=== PATIENT | male | born 1970 | race Caucasian/White ===

== ENCOUNTER → 2020-07-26 | Outpatient (CLI) | payer SELFPAY | LOC: M LABSMTC 12:05 | PROVIDERS: ATTEND Pediatrics | DX: Z20.828 Contact with and (suspected) exposure to other viral communicable diseases (principal) ==

== ENCOUNTER → 2023-10-15 | Outpatient (REF) | payer OTHER ==
[~2023-10-15] MED LIST: BISO5TAB14; FEXO60TA99; LISI10TA22
== END ==
LOC: M LAB REF 12:42
PROVIDERS: ATTEND Nurse Practitioner Adult Health
DX: D72.829 Elevated white blood cell count, unspecified (principal)

== ENCOUNTER → 2023-10-18 | Outpatient (CLI) | payer OTHER | LOC: M WUC 15:29 | PROVIDERS: ATTEND Nurse Practitioner Adult Health | DX: D72.829 Elevated white blood cell count, unspecified (principal) ==

== ENCOUNTER → 2023-11-20 | Outpatient (CLI) | payer OTHER | LOC: M LAB 16:02 | PROVIDERS: ATTEND Nurse Practitioner Adult Health | DX: I10 Essential (primary) hypertension (principal); R61 Generalized hyperhidrosis; D72.829 Elevated white blood cell count, unspecified; R05.3 Chronic cough ==

== ENCOUNTER → 2023-11-22 | Outpatient (REF) | payer OTHER | LOC: M LAB REF 10:10 | PROVIDERS: ATTEND Nurse Practitioner Adult Health | DX: I10 Essential (primary) hypertension (principal) ==

== ENCOUNTER → 2023-11-30 | Outpatient (CLI) | payer OTHER | LOC: M RAD 06:53 | PROVIDERS: ATTEND Nurse Practitioner Adult Health | DX: I10 Essential (primary) hypertension (principal) ==

== ENCOUNTER → 2024-09-29 | Outpatient (REF) | payer OTHER ==
[2024-09-29 17:39] LABS: RSV AMPLIFICATION NEGATIVE (NEGATIVE)
== END ==
LOC: M LAB REF 16:28
PROVIDERS: ATTEND Nurse Practitioner Adult Health
DX: J02.9 Acute pharyngitis, unspecified (principal)

== ENCOUNTER 2025-07-24 16:51 | Emergency (ER) | payer OTHER ==
[~2025-07-24] VITALS: Ht 170.2 cm; Wt 109.1 kg
[2025-07-24] MEDS ORDERED: METF-1156 (17:18)
[2025-07-24] MEDS ORDERED: JARD1TAB3 (17:18)
[2025-07-24] MEDS: ONDANSETRON 4MG ORAL DISINTEGRATING TAB PO ONE ×2 (21:11)
[2025-07-24] MEDS: ACETAMINOPHEN 500 MG TAB PO ONE (21:11)
[2025-07-24] MEDS: TETANUS/DIPHTH/ACEL. PERTUSSIS 0.5 ML SYR IM.IMMUN ONE (21:12)
[2025-07-24 21:13] VITALS: BP 158/90; TEMP 97.7; O2SAT 97
== END 2025-07-24 21:21 | disposition home or self-care (01) ==
LOC: M ED 16:51
DX: S00.03XA Contusion of scalp, initial encounter (principal); W00.0XXA Fall on same level due to ice and snow, initial encounter; I10 Essential (primary) hypertension; F10.10 Alcohol abuse, uncomplicated; M48.02 Spinal stenosis, cervical region; Y92.410 Unspecified street and highway as the place of occurrence of the external cause; Y93.89 Activity, other specified; Y99.9 Unspecified external cause status; Z88.0 Allergy status to penicillin; Z79.4 Long term (current) use of insulin; Z79.899 Other long term (current) drug therapy; Z23 Encounter for immunization